=== PATIENT | male | born 2000 | race Caucasian/White ===

== ENCOUNTER 2021-07-12 15:04 | Inpatient (IN) ==
[2021-07-12] MEDS ORDERED: *HR* LORazepam 2 MG/ML VIAL IM ONE (15:50)
[2021-07-12 15:53] LABS: Basophils % 0.2 %; Eosinophils % 0.2 %; Hematocrit 44.8 % (37.5-50.1); Hemoglobin 15.4 g/dL (12.9-16.9); Immature Granulocytes % 0.4 % (0-4); Lymphocytes # 2.6 K/mcL (0.6-4.6); Lymphocytes % 23.8 %; Mean Corpuscular HGB Conc 34.4 g/dL (31.6-35.5); Mean Corpuscular Volume 87.3 fL (83.0-100.0); Mean Platelet Volume 9.6 fL (9.4-12.4); Monocytes % 9.6 %; Neutrophils # 7.2 K/mcL (1.6-8.9); Platelet Count 300 K/mcL (140-400); Red Blood Count 5.13 M/mcL (4.19-5.50); Red Cell Distribution Width 13.3 % (11.5-14.5); Segmented Neutrophils % 65.8 %; White Blood Count 10.9 K/mcL (4.3-11.1)
[2021-07-12 15:59] LABS: Bacteria,Urine Few per hpf (None-Few); Bilirubin,Urine Negative (Negative); Blood,Urine Negative (Negative); Clarity,Urine Clear (Clear); Color,Urine Yellow (Yellow); Glucose,Urine (UA) Normal (Normal); Ketones,Urine 60 mg/dL (Negative); Leukocyte Esterase,Urine Negative (Negative); Mucus,Urine Moderate per lpf (None-Few); Nitrite,Urine Negative (Negative); PH,Urine 6.5 pH Units (5.0-8.0); Protein,Urine 30 mg/dL (Neg-Trace); RBC,Urine 0-3 per hpf (0-3); Specific Gravity,Urine 1.029 (1.010-1.025); WBC,Urine 0-3 per hpf (0-3)
[2021-07-12 16:12] LABS: Acetaminophen < 10 mcg/mL (10-20); BUN/Creatinine Ratio 11 (6-26); Blood Urea Nitrogen 10 mg/dL (6-20); Calcium 9.5 mg/dL (8.6-10.3); Carbon Dioxide 27 mEq/L (23-29); Chloride 101 mEq/L (98-107); Ethanol < 10 mg/dL (Less than 10); Glucose 116 mg/dL (70-105); Osmolality,Calculated 286 (280-300); Salicylate < 2.5 mg/dL (15.0-30.0); Sodium 138 mEq/L (136-145); eGFR For African Americans > 60 (> 60); eGFR For Non-African Americans > 60 (> 60)
[2021-07-12 16:24] LABS: Amphetamine Screen,Urine Negative ng/mL (Cutoff=1000); Barbiturate Screen,Urine Negative ng/mL (Cutoff=200); Benzodiazepines Screen,Urine Negative ng/mL (Cutoff=200); Cannabinoid Screen,Urine Positive ng/mL (Cutoff = 50); Cocaine Screen,Urine Negative ng/mL (Cutoff= 300); Opiate Screen,Urine Negative ng/mL (Cutoff=300); Phencyclidine Screen,Urine Negative ng/mL (Cutoff=25)
[2021-07-12] MEDS ORDERED: 0.9 % Sodium Chloride 1,000 ML IVC ONE (17:28)
[2021-07-12] MEDS ORDERED: Naloxone 0.4 MG/ML INJ IVP PRN (17:56)
[2021-07-13 03:13] LABS: Basophils % 0.2 %; Eosinophils # 0.1 K/mcL (0.0-0.6); Eosinophils % 1.1 %; Hematocrit 40.5 % (37.5-50.1); Hemoglobin 14.1 g/dL (12.9-16.9); Immature Granulocytes % 0.3 % (0-4); Lymphocytes # 2.6 K/mcL (0.6-4.6); Lymphocytes % 25.8 %; Mean Corpuscular HGB Conc 34.8 g/dL (31.6-35.5); Mean Corpuscular Hemoglobin 30.4 pg (28.0-33.3); Mean Corpuscular Volume 87.3 fL (83.0-100.0); Mean Platelet Volume 9.9 fL (9.4-12.4); Monocytes # 0.9 K/mcL (0.0-1.3); Monocytes % 9.4 %; Neutrophils # 6.3 K/mcL (1.6-8.9); Platelet Count 267 K/mcL (140-400); Red Blood Count 4.64 M/mcL (4.19-5.50); Red Cell Distribution Width 13.7 % (11.5-14.5); Segmented Neutrophils % 63.2 %; White Blood Count 9.9 K/mcL (4.3-11.1)
[2021-07-13 03:50] LABS: Alanine Aminotransferase 14 Units/L (7-52); Albumin/Globulin Ratio 1.9 (1.1-2.2); Alkaline Phosphatase 49 Units/L (34-104); Aspartate Amino Transferase 16 Units/L (13-39); BUN/Creatinine Ratio 12 (6-26); Bilirubin,Total 0.8 mg/dL (0.3-1.0); Blood Urea Nitrogen 11 mg/dL (6-20); Calcium 8.9 mg/dL (8.6-10.3); Carbon Dioxide 26 mEq/L (23-29); Chloride 107 mEq/L (98-107); Globulin 2.1 g/dL (2.4-3.5); Glucose 99 mg/dL (70-105); Magnesium 1.9 mg/dL (1.6-2.6); Osmolality,Calculated 291 (280-300); Phosphorous 3.6 mg/dL (2.7-4.5); Potassium 3.8 mEq/L (3.5-5.1); Sodium 141 mEq/L (136-145); Total Protein 6.1 g/dL (6.4-8.9); eGFR For African Americans > 60 (> 60); eGFR For Non-African Americans > 60 (> 60)
[2021-07-13] MEDS: Folic Acid 1 MG TABLET PO SCH (07:37)
[2021-07-13] MEDS: Thiamine (B-1) 100 MG TABLET PO SCH (07:37)
[2021-07-13] MEDS: Ondansetron ODT 4 MG TAB.RAPDIS SL PRN ×2 (08:08→16:34)
[2021-07-13] MEDS ORDERED: *HR* LORazepam 2 MG/ML VIAL IVP PRN (11:00)
[2021-07-13] MEDS ORDERED: *HR* LORazepam 2 MG/ML VIAL IVP ONE (11:01)
[2021-07-13] MEDS: risperiDONE 0.25 MG TABLET PO SCH ×2 (13:32→21:34)
[2021-07-13] MEDS: Acetaminophen 325 MG TABLET PO PRN ×2 (13:32→21:35)
[2021-07-13] MEDS: *HR* LORazepam 2 MG/ML VIAL IVP PRN (14:50)
[2021-07-14] MEDS: *HR* LORazepam 2 MG/ML VIAL IVP PRN ×3 (00:13→16:25)
[2021-07-14 05:46] LABS: Basophils % 0.3 %; Eosinophils # 0.1 K/mcL (0.0-0.6); Eosinophils % 1.5 %; Hematocrit 41.5 % (37.5-50.1); Hemoglobin 14.3 g/dL (12.9-16.9); Immature Granulocytes % 0.3 % (0-4); Lymphocytes # 2.2 K/mcL (0.6-4.6); Lymphocytes % 32.7 %; Mean Corpuscular HGB Conc 34.5 g/dL (31.6-35.5); Mean Corpuscular Hemoglobin 30.2 pg (28.0-33.3); Mean Corpuscular Volume 87.7 fL (83.0-100.0); Mean Platelet Volume 9.9 fL (9.4-12.4); Monocytes # 0.8 K/mcL (0.0-1.3); Monocytes % 11.5 %; Neutrophils # 3.5 K/mcL (1.6-8.9); Platelet Count 236 K/mcL (140-400); Red Blood Count 4.73 M/mcL (4.19-5.50); Red Cell Distribution Width 13.8 % (11.5-14.5); Segmented Neutrophils % 53.7 %; White Blood Count 6.6 K/mcL (4.3-11.1)
[2021-07-14 06:57] LABS: Alanine Aminotransferase 15 Units/L (7-52); Albumin 4.2 g/dL (3.5-5.7); Albumin/Globulin Ratio 2.1 (1.1-2.2); Alkaline Phosphatase 45 Units/L (34-104); Aspartate Amino Transferase 14 Units/L (13-39); BUN/Creatinine Ratio 9 (6-26); Bilirubin,Total 0.5 mg/dL (0.3-1.0); Blood Urea Nitrogen 9 mg/dL (6-20); Calcium 9.2 mg/dL (8.6-10.3); Carbon Dioxide 27 mEq/L (23-29); Chloride 106 mEq/L (98-107); Glucose 99 mg/dL (70-105); Osmolality,Calculated 291 (280-300); Potassium 3.6 mEq/L (3.5-5.1); Sodium 141 mEq/L (136-145); Total Protein 6.2 g/dL (6.4-8.9); eGFR For African Americans > 60 (> 60); eGFR For Non-African Americans > 60 (> 60)
[2021-07-14] MEDS: Ondansetron ODT 4 MG TAB.RAPDIS SL PRN (08:19)
[2021-07-14] MEDS ORDERED: *HR* Promethazine 25 MG/ML VIAL IM PRN ×2 (08:40→09:40)
[2021-07-14] MEDS: Thiamine (B-1) 100 MG TABLET PO SCH (08:42)
[2021-07-14] MEDS: risperiDONE 0.25 MG TABLET PO SCH ×2 (08:42→20:38)
[2021-07-14] MEDS: Folic Acid 1 MG TABLET PO SCH (08:43)
[2021-07-14] MEDS ORDERED: Ringers Solution, Lactated 1,000 ML IVC SCH (09:45)
[2021-07-15] MEDS: Nicotine 21 MG PATCH.TD24 TD SCH ×3 (00:40→19:47)
[2021-07-15] MEDS: Ondansetron ODT 4 MG TAB.RAPDIS SL PRN (00:40)
[2021-07-15 03:30] LABS: Basophils % 0.3 %; Eosinophils # 0.1 K/mcL (0.0-0.6); Eosinophils % 1.1 %; Hematocrit 41.9 % (37.5-50.1); Hemoglobin 14.4 g/dL (12.9-16.9); Immature Granulocytes % 0.3 % (0-4); Lymphocytes % 25.2 %; Mean Corpuscular HGB Conc 34.4 g/dL (31.6-35.5); Mean Corpuscular Hemoglobin 30.6 pg (28.0-33.3); Mean Platelet Volume 9.9 fL (9.4-12.4); Monocytes # 0.9 K/mcL (0.0-1.3); Monocytes % 8.1 %; Neutrophils # 6.8 K/mcL (1.6-8.9); Platelet Count 231 K/mcL (140-400); Red Blood Count 4.71 M/mcL (4.19-5.50); Red Cell Distribution Width 13.4 % (11.5-14.5)
[2021-07-15 03:32] LABS: Lymphocytes # 2.7 K/mcL (0.6-4.6); White Blood Count 10.5 K/mcL (4.3-11.1)
[2021-07-15 04:21] LABS: Alanine Aminotransferase 15 Units/L (7-52); Albumin 4.3 g/dL (3.5-5.7); Albumin/Globulin Ratio 2.4 (1.1-2.2); Alkaline Phosphatase 42 Units/L (34-104); Aspartate Amino Transferase 14 Units/L (13-39); BUN/Creatinine Ratio 15 (6-26); Bilirubin,Total 0.4 mg/dL (0.3-1.0); Blood Urea Nitrogen 14 mg/dL (6-20); Calcium 8.9 mg/dL (8.6-10.3); Carbon Dioxide 23 mEq/L (23-29); Chloride 106 mEq/L (98-107); Creatine Kinase 47 Units/L (30-223); Globulin 1.8 g/dL (2.4-3.5); Glucose 95 mg/dL (70-105); Magnesium 1.7 mg/dL (1.6-2.6); Osmolality,Calculated 288 (280-300); Potassium 3.7 mEq/L (3.5-5.1); Sodium 139 mEq/L (136-145); Total Protein 6.1 g/dL (6.4-8.9); eGFR For African Americans > 60 (> 60); eGFR For Non-African Americans > 60 (> 60)
[2021-07-15] MEDS: risperiDONE 0.25 MG TABLET PO SCH ×2 (09:49→20:09)
[2021-07-15] MEDS: Thiamine (B-1) 100 MG TABLET PO SCH (09:49)
[2021-07-15] MEDS: Acetaminophen 325 MG TABLET PO PRN ×2 (09:50→19:47)
[2021-07-15] MEDS: Folic Acid 1 MG TABLET PO SCH (09:50)
[2021-07-16 07:46] VITALS: BP 119/65; PULSE 96; TEMP 97.8; O2SAT 99
[2021-07-16] MEDS: Folic Acid 1 MG TABLET PO SCH (09:05)
[2021-07-16] MEDS: Thiamine (B-1) 100 MG TABLET PO SCH (09:05)
[2021-07-16] MEDS: Nicotine 21 MG PATCH.TD24 TD SCH (09:06)
[2021-07-16] MEDS: risperiDONE 0.25 MG TABLET PO SCH (09:06)
== END 2021-07-16 13:36 | DRG 773 ==
LOC: EMEROOARM 15:04 → 3NENU 15:04 → SUATTDRO 18:00 → 3NENU 19:08
PROVIDERS: ADMIT Student in an Organized Health Care Education/Training Program; ATTEND Internal Medicine

== ENCOUNTER 2021-07-16 13:37 | Inpatient (IN) ==
[2021-07-16] MEDS ORDERED: *HR* LORazepam 1 MG TABLET PO PRN (15:29)
[2021-07-16] MEDS ORDERED: Haloperidol Lactate 5 MG/ML VIAL IM PRN (15:29)
[2021-07-16] MEDS ORDERED: MOM Conc 10 ML UD.LIQ PO PRN (15:29)
[2021-07-16] MEDS ORDERED: Mag Hydrox/Al Hydrox/Simeth 30 ML UDC PO PRN (15:29)
[2021-07-16] MEDS ORDERED: *HR* LORazepam 2 MG/ML VIAL IM PRN (15:29)
[2021-07-16] MEDS ORDERED: haloperidoL 5 MG TABLET PO PRN (15:29)
[2021-07-16] MEDS: hydrOXYzine pamoate 25 MG CAPSULE PO PRN (17:46)
[2021-07-16] MEDS: Nicotine 2 MG GUM BC PRN ×2 (19:20→21:22)
[2021-07-16] MEDS: risperiDONE 0.25 MG TABLET PO SCH (21:38)
[2021-07-16] MEDS: Ibuprofen 400 MG TABLET PO PRN (21:41)
[2021-07-16] MEDS: QUEtiapine Fumarate 25 MG TABLET PO PRN (21:42)
[2021-07-17] MEDS ORDERED: Nicotine 21 MG PATCH.TD24 TD SCH (09:00)
[2021-07-17] MEDS: Folic Acid 1 MG TABLET PO SCH (09:14)
[2021-07-17] MEDS: risperiDONE 0.25 MG TABLET PO SCH ×2 (09:14→21:25)
[2021-07-17] MEDS: Thiamine (B-1) 100 MG TABLET PO SCH (09:15)
[2021-07-17] MEDS: Nicotine 2 MG GUM BC PRN ×5 (09:38→20:05)
[2021-07-17] MEDS: Nicotine 21 MG PATCH.TD24 TD SCH (11:11)
[2021-07-17] MEDS: hydrOXYzine pamoate 25 MG CAPSULE PO PRN ×3 (13:27→20:05)
[2021-07-17] MEDS: Ibuprofen 400 MG TABLET PO PRN (21:24)
[2021-07-17] MEDS: QUEtiapine Fumarate 25 MG TABLET PO PRN (21:25)
[2021-07-18] MEDS: Nicotine 21 MG PATCH.TD24 TD SCH (08:54)
[2021-07-18] MEDS: Thiamine (B-1) 100 MG TABLET PO SCH (08:54)
[2021-07-18] MEDS: hydrOXYzine pamoate 25 MG CAPSULE PO PRN ×3 (08:54→21:13)
[2021-07-18] MEDS: Folic Acid 1 MG TABLET PO SCH (08:54)
[2021-07-18] MEDS: risperiDONE 0.25 MG TABLET PO SCH ×2 (08:54→20:07)
[2021-07-18] MEDS: Nicotine 2 MG GUM BC PRN ×5 (11:19→22:06)
[2021-07-18] MEDS: QUEtiapine Fumarate 25 MG TABLET PO PRN (19:20)
[2021-07-19] MEDS: Folic Acid 1 MG TABLET PO SCH (08:37)
[2021-07-19] MEDS: Nicotine 2 MG GUM BC PRN ×5 (08:37→20:05)
[2021-07-19] MEDS: Thiamine (B-1) 100 MG TABLET PO SCH (08:37)
[2021-07-19] MEDS: risperiDONE 0.25 MG TABLET PO SCH ×2 (08:37→21:12)
[2021-07-19] MEDS: Nicotine 21 MG PATCH.TD24 TD SCH (08:38)
[2021-07-19] MEDS ORDERED: polyethylene glycoL 3350 17 GM POWD.PACK PO PRN (10:16)
[2021-07-19] MEDS: Ibuprofen 400 MG TABLET PO PRN (12:40)
[2021-07-20] MEDS: Nicotine 21 MG PATCH.TD24 TD SCH (08:21)
[2021-07-20] MEDS: Folic Acid 1 MG TABLET PO SCH (08:22)
[2021-07-20] MEDS: risperiDONE 0.25 MG TABLET PO SCH (08:24)
[2021-07-20] MEDS: Thiamine (B-1) 100 MG TABLET PO SCH (08:24)
[2021-07-20] MEDS: Nicotine 2 MG GUM BC PRN (08:25)
[2021-07-20 08:41] VITALS: BP 128/76; PULSE 86; TEMP 98.3; O2SAT 98
== END 2021-07-20 13:16 | disposition home or self-care (01) | DRG 754 ==
LOC: 1ANU 13:37
PROVIDERS: ADMIT Psychiatry & Neurology Psychiatry; ATTEND Psychiatry & Neurology Psychiatry